=== PATIENT | male | born 1970 | race Caucasian/White ===

== ENCOUNTER → 2019-11-03 08:46 | Outpatient (BNVA) | payer OTHER, SELFPAY | PROVIDERS: Visit Provider Registered Nurse | DX: Z02.1 Encounter for pre-employment examination (principal) | CPT/HCPCS: 80307 ==

== ENCOUNTER 2022-03-27 19:48 | Inpatient (IN) | payer OTHER, SELFPAY ==
[2022-03-27 19:50] VITALS: BP 127/80; PULSE 83; RESP 18; TEMP 36.9; O2SAT 97; BMI 27.7
--- NOTE | 2022-03-27 19:55 | XRR_ITS ---
PROCEDURE INFORMATION: Exam: XR Right Femur Exam date and time: 03/27/2022 8:13 PM Age: 51 years old Clinical indication: Injury or trauma; Fall; Other: Possible fracture TECHNIQUE: Imaging protocol: Radiologic exam of the Right femur. Views: 2 views. COMPARISON: No relevant prior studies available. FINDINGS: Bones/joints: Mildly displaced right mid femoral neck fracture. Femoroacetabular alignment is normal. The distal femur and knee are unremarkable. The visible portion of the pelvis is intact. Soft tissues: Visible soft tissues are unremarkable. XR/XR femur RT min 2V* [id number] IMPRESSION: Right femoral neck fracture.
--- NOTE | 2022-03-27 19:55 | XRR_ITS ---
PROCEDURE INFORMATION: Exam: XR Right Hip Exam date and time: 03/27/2022 8:13 PM Age: 51 years old Clinical indication: Pelvic pain; Additional info: Trauma TECHNIQUE: Imaging protocol: Radiologic exam of the Right hip. Views: 1 view hip with pelvis when performed. COMPARISON: No relevant prior studies available. FINDINGS: Bones/joints: Mildly displaced mid right femoral neck fracture. The visible portion of the pelvis and sacrum is intact. Soft tissues: Visible soft tissues are unremarkable. XR/XR hip RT 2-3V wo/w pel* [id number] IMPRESSION: Right femoral neck fracture.
--- NOTE | 2022-03-27 19:57 | W.ED.GENADLT ---
HPI - General Adult General: Chief complaint: Fall Stated complaint: right leg pain Time Seen by Provider: 03/27/22 19:52 History of Present Illness: 51-year-old male presenting today with right hip pain. Patient notes he was riding his horse. When horse suddenly bucked him off. Striking his right hip on the ground. He denies back pain, abdominal pain, chest pain, neck pain, head pain. Did not strike his head. Is not on blood thinners. He denies additional injuries. Pain in his leg is worse with movement somewhat relieved with rest. Review of Systems General: Reports: 10 or more systems reviewed and unremarkable except in HPI and below Physical Exam Const: COMMON NORMALS: no acute distress, patient oriented x3 and alert GENERAL APPEARANCE: cooperative ORIENTATION/CONSCIOUSNESS: Yes awake, Yes oriented to person, Yes oriented to place and Yes oriented to time HENMT: COMMON NORMALS: normocephalic, atraumatic, external ears normal, Normal external nose present and moist oral mucous membranes HEAD & SCALP: normal to inspection, normocephalic and atraumatic NOSE: Normal external nose present GENERAL EAR: hearing grossly impaired EXTERNAL EAR: Yes external ears normal Eye: COMMON NORMALS: Equal, round and reactive pupils present, EOMs intact bilaterally, conjunctivae normal and no scleral icterus GENERAL EYE: appearance normal, both eyes and all related structures EYELID: eyelids normal CONJUNCTIVA: Yes conjunctivae normal SCLERA: sclerae normal PUPIL: Yes Equal, round and reactive pupils present Neck/C-Spine: COMMON NORMALS: full ROM, supple and no JVD GENERAL: Yes normal visual inspection Lymph: LYMPHATIC: no lymphadenopathy noted and no lymphedema noted Chest: COMMONS NORMALS: normal inspection of the chest Resp: COMMON NORMALS: normal respiratory effort, No retractions and No use of accessory muscles Cardio: COMMON NORMALS: no JVD, regular rate and regular rhythm RATE: regular rate RHYTHM: regular rhythm GI: COMMON NORMALS: Normal to inspection, nondistended, normoactive bowel sounds present : COMMON NORMALS: Yes no CVA tenderness BLADDER/KIDNEY EXAM: Yes no CVA tenderness Back/Pelvis: COMMON NORMALS: no CVA tenderness and thoracic and lumbar spine normal to inspection Extremity: COMMON NORMALS: normal to inspection and capillary refill normal; negative for full ROM (tenderness to palpation right hip joint, pain with movement) GENERAL: Yes normal exam except as noted Neuro: COMMON NORMALS: patient oriented x3, CN's II-XII intact bilaterally, moves all extremities, no focal motor deficits, no sensory deficits noted and gait normal SENSORIUM/ORIENTATION: Yes alert, Yes oriented to person, Yes oriented to place and Yes oriented to time Psych: COMMON NORMALS: mental status grossly normal, Normal thought process present, cooperative and normal affect THOUGHT PROCESS: Normal thought process present Skin: COMMON NORMALS: no rashes or lesions noted and no wounds GENERAL SKIN EXAM: no rashes or lesions noted Course Vital Signs: Vital signs: Vital Signs Temperature 98.5 F 03/27/22 19:59 Pulse Rate 83 03/27/22 19:59 Respiratory Rate 18 03/27/22 19:59 Blood Pressure 133/84 03/27/22 19:59 Pulse Oximetry 97 03/27/22 19:59 Oxygen Delivery Me thod 03/27/22 19:59 MDM - General Adult Medical Decision Making 51-year-old male presenting today with right hip pain. Patient presenting today with right hip pain. X-rays ordered. X-ray with evidence of right hip fracture. Spoke to orthopedics who will fixate tomorrow. Patient admitted in stable condition. Discharge Plan Discharge Patient Disposition: Admitted As Inpatient Clinical Impression: Closed hip fracture Condition: Stable Coding Level of Care Code ED Director Financial Analysis for Josefa Song Exam Comprehensive
[2022-03-27 19:59] VITALS: BP 133/84; PULSE 83; RESP 18; TEMP 36.9; O2SAT 97
--- NOTE | 2022-03-27 20:31 | XRR_ITS ---
PROCEDURE INFORMATION: Exam: XR Right Knee Exam date and time: 03/27/2022 8:39 PM Age: 51 years old Clinical indication: Pain; Knee; Right; Additional info: Trauma TECHNIQUE: Imaging protocol: Radiologic exam of the Right knee. Views: 3 views. COMPARISON: CR XR femur RT min 2V* [id number] 03/27/2022 8:13 PM FINDINGS: Bones/joints: Normal. Soft tissues: Normal. XR/XR knee RT 3V* [id number] IMPRESSION: No acute findings.
[2022-03-27] MEDS: ketorolac 30 mg/mL INJ 15 MG IVP (20:34)
--- NOTE | 2022-03-27 20:36 | PC.NURSE ---
Toradol IM not given secondary to pt having IV. Dr. Wei changed order to IV, which was administered .
[2022-03-27 21:26] VITALS: RESP 18; O2SAT 100
[2022-03-27] MEDS: HYDROmorphone 1 mg/mL INJ 1 mL IVP (21:26)
--- NOTE | 2022-03-27 22:09 | PM.PN ---
Subjective Subjective: Orthopedic note: Full orthopedic consult note to follow in the morning once patient has been seen and evaluated by myself. Information obtained by chart review and discussion with ED physician. Orthopedics was consulted. Was contacted by emergency department after patient sustained a fall after being bucked off a horse directly onto his right hip. Patient is a 51-year-old male and complains of right hip pain. X-ray showed patient had a displaced right femoral neck fracture. Orthopedics was consulted. Patient's imaging was reviewed. Patient has a steep vertical shear fracture with significant displacement of the right femoral neck. Given patient's activity level as well as significant displacement, vertical shear fracture pattern as well as patient's age and feel patient would most likely benefit from a right total hip arthroplasty through an anterior approach. At this point would recommend patient be admitted by the hospitalist service for medical management as well as preoperative optimization for surgery tomorrow. Patient should be n.p.o. at midnight. Nonweightbearing to the right lower extremity. Hold a.m. anticoagulation. Plan for surgery tomorrow for right total hip arthroplasty. We will have detailed discussion with patient about his treatment options and as well as recommendations in the morning. Vitals/I&O/Wt Last Vital Signs Temp 98.5 F 03/27/22 19:59 Pulse 83 03/27/22 19:59 Resp 18 03/27/22 21:26 BP 133/84 03/27/22 19:59 Pulse Ox 100 03/27/22 21:26 O2 Del Method 03/27/22 19:59 Weight last 48 hrs Weight 210 lb Physical Exam Narrative: Patient was not seen and examined. Data Xray Ortho: My impression: X-rays of the pelvis AP lateral of the hip as well as femur and knee films reviewed and show patient has a high Powells angle vertical shear fracture of the transcervical femoral neck on the right hip. Fracture significantly displaced. No other acute fracture dislocation noted. A&P Assessment and plan (1) Displaced fracture of right femoral neck: Status: Acute Plan Orthopedic recommendations -N.p.o. at midnight, patient may have diet this evening -Nonweightbearing right lower extremity -Pain control per admitting team -Hold a.m. anticoagulation -Internal medicine team as primary for medical management and preoperative optimization -Plan for OR tomorrow for right total hip arthroplasty Attestations Medical Necessity Statement*: Patient will require hospitalization and surgery for right femoral neck fracture. Coding Level of Care Code Acute Education Trainer for [facility] Fwd Diagnoses Displaced fracture of right femoral neck S72.001A
[2022-03-27 22:43] VITALS: BP 126/85; PULSE 81; RESP 18; O2SAT 97
--- NOTE | 2022-03-27 23:18 | XRR_ITS ---
PROCEDURE INFORMATION: Exam: XR Chest Exam date and time: 03/28/2022 1:31 AM Age: 51 years old Clinical indication: Patient HX: Pre op for hip fracture. ; Additional info: Fall TECHNIQUE: Imaging protocol: Radiologic exam of the chest. Views: 1 view. COMPARISON: No relevant prior studies available. FINDINGS: Lungs: There is no consolidation. Pleural spaces: There is no pleural effusion or pneumothorax. Heart/Mediastinum: Cardiomediastinal contours are unremarkable. Bones/joints: Bones are unremarkable. XR/XR chest 1V portable [id number] IMPRESSION: No acute findings.
--- NOTE | 2022-03-27 23:22 | P.HP_ITS ---
Providers/Chief Complaint Admitting Physician: Jeyson Hernandez MD Chief Complaint: right leg pain History of Present Illness Norman Howard is a 51 year old male with no significant past medical history, who presents [facility] as he fell off his horse and landed on his right hip. He tells me that he has not seen a doctor in over 15 years, no significant health issues, no significant surgeries, does smoke, he tells me this afternoon, he was on his horse, went he was thrown off his horse and landed on his right hip. No head trauma, no loss of consciousness, was found to have a right hip fracture, orthopedic service has been consulted, hospitalist team was called for admission. Review of Systems Const: Denies: fever(s) Card: Denies: chest pain Resp: Denies: dyspnea GI: Denies: abdominal pain Musc: Reports: extremity pain Neuro: Denies: headache(s) Medications/Allergies Home Medications Medication Instructions Recorded Confirmed Last Taken Type No Known Home Medications 03/27/22 03/27/22 Unknown History Allergies Allergy/AdvReac Type Severity Reaction Status Date / Time No Known Allergies Allergy Verified 03/27/22 20:57 PFSH Acute PFSH: Medical History (Updated 03/27/22 @ 22:13 by Parker Maharaj DO) Displaced fracture of right femoral neck Surgical History (Updated 03/27/22 @ 23:24 by Jeyson Hernandez MD) No pertinent past surgical history Social History (Updated 03/27/22 @ 23:24 by Jeyson Hernandez MD) Smoking and tobacco status: current every day smoker Alcohol intake: current Alcohol intake frequency: holidays/special occasions only Substance/Drug Use: never Vitals/I&O/Wt Last Vital Signs Temp 98.5 F 03/27/22 19:59 Pulse 81 03/27/22 22:43 Resp 18 03/27/22 22:43 BP 126/85 03/27/22 22:43 Pulse Ox 97 03/27/22 22:43 O2 Del Method 03/27/22 19:59 Weight last 48 hrs Weight 95.254 kg Physical Exam Const: COMMON NORMALS: no acute distress and patient oriented x3 HENMT: COMMON NORMALS: normocephalic HEAD & SCALP: normocephalic Eye: COMMON NORMALS: Equal, round and reactive pupils present Neck/C-Spine: COMMON NORMALS: no JVD Resp: COMMON NORMALS: normal respiratory effort, No retractions, No use of accessory muscles and clear to auscultation bilaterally AUSCULTATION: clear to auscultation bilaterally Cardio: COMMON NORMALS: no JVD, regular rate, regular rhythm, S1 normal heart sound present and S2 normal heart sound present RATE: regular rate RHYTHM: regular rhythm HEART SOUNDS: S1 normal heart sound present and S2 normal heart sound present GI: COMMON NORMALS: Normal to inspection, nondistended, normoactive bowel sounds present, Soft to palpation, non-tender, No hepatosplenomegaly present, no masses and no bruits PALPATION: Yes Soft to palpation and Yes No hepatosplenomegaly present Extremity: COMMON NORMALS: capillary refill normal, no clubbing, cyanosis or edema, no calf tenderness and no pedal edema Neuro: COMMON NORMALS: patient oriented x3 Psych: COMMON NORMALS: mental status grossly normal A&P Assessment and plan (1) Displaced fracture of right femoral neck: Status: Acute Plan Right hip fracture -N.p.o. midnight -Surgical intervention tomorrow morning by the surgery service -Dilaudid for pain control -Zofran for nausea -Full code -SCDs for DVT prophylaxis, Lovenox after surgery -PT OT -Chest x-ray, EKG, blood work Attestations Medical Necessity Statement*: Patient requires hospitalization, outpatient observation, for right hip fracture Coding Level of Care Code Acute Doctor Of Nurse Anesthesia Practice for g Fwd Diagnoses Displaced fracture of right femoral neck S72.001A
[2022-03-27 23:43] VITALS: O2SAT 97
[2022-03-27] MEDS: dextrose 5%-sod chloride 0.9% 1,000 ML 75 ML IV (23:47)
--- NOTE | 2022-03-27 23:51 | ECG_ITS ---
[facility] Test Date: 2022-03-27 Pat Name: Norman Howard Department: Room: 273 Gender: Male Recruiter Manager: : 1970 Requested By: Jeyson Hernandez Order Number: [id number] Rubén MD: Anabell Torres M.D. Measurements Intervals Gamaliel Rate: 66 P: 68 MA: 189 QRS: -27 QRSD: 97 T: 14 QT: 400 QTc: 420 Interpretive Statements SINUS RHYTHM POSSIBLE LEFT ATRIAL ENLARGEMENT [-0.1mV P-WAVE IN V1/V2] BORDERLINE LEFT AXIS DEVIATION [QRS AXIS < -20] No previous ECG available for comparison Electronically Signed On 03-29-2022 6:24:48 CDT by Anabell Torres M.D. [id number]
[2022-03-27] MEDS: acetaminophen 325 mg Tablet 650 MG PO (23:54)
[2022-03-28] VITALS (16 sets, daily range): BP systolic 82–149; BP diastolic 48–84; PULSE 56–77; RESP 13–18; TEMP 36.2–37.7; O2SAT 94–99; BMI 28.2
--- NOTE | 2022-03-28 | XR_ITS ---
WS: [id number] Right hip, C-arm fluoroscopy, 03/28/2022 Clinical Data: canulated screws Comparison: Right hip, 03/27/2022 Findings: Dr. Garcia inserted 3 hip nails to reduce the right femoral neck fracture. XR/XR hip RT 2-3V wo/w pel* [id number] Impression: Internal fixation of right femoral neck fracture.
--- NOTE | 2022-03-28 | SCC_ITS ---
Procedure done: Closed reduction and percutaneous pinning right hip 120.7 seconds of fluoroscopic guidance, for a cumulative dose of 29.54 mGy, was provided to Dr. Garcia by the radiology department. C-arm images of the right hip were saved for the patient's permanent record. [facility]ITALJon
[2022-03-28 00:56] LABS: Chol HDL Ratio 5.94 mg/dL (1.0-5.00); Cholesterol 214 mg/dL (0-200); HDL Cholesterol 36 mg/dL (60-100); LDL Cholesterol Calculated 129 mg/dL (50-129); LDL HDL Ratio 3.58 RATIO (0.00-3.22); Magnesium 2.1 mg/dL (1.7-2.3); NT Pro B Type Natriuretic Pept 145 pg/mL (0-125); Phosphorus 2.9 mg/dL (2.5-4.5); Triglycerides 244 mg/dL (0-150)
[2022-03-28 01:38] LABS: Estmated Average Glucose 117; Hemoglobin A1C 5.7 % (4.0-6.0)
[2022-03-28] MEDS: HYDROmorphone 1 mg/mL INJ 1 mL 0.5 MG IVP ×2 (01:54→08:22)
[2022-03-28 03:25] LABS: SARS Covid-2 Antigen Negative (Negative)
--- NOTE | 2022-03-28 07:53 | PC.OT ---
OT EVALUATION ORDERS RECEIVED. PATIENT IS AWAITING SURGERY; WILL HOLD AND ANTICIPATE ORDERS AFTER SURGICAL INTERVENTION.
[2022-03-28 08:45] LABS: Basophils # 0.1 10^3/uL (0.0-0.1); Basophils % 0.7 %; Eosinophils # 0.4 10^3/uL (0.0-0.8); Eosinophils % 3.6 %; Hematocrit 46.7 % (42.0-52.0); Hemoglobin 15.2 g/dL (11.7-16.6); Lymphocytes # 1.5 10^3/uL (0.8-4.8); Lymphocytes % 13.1 %; Mean Corpuscular HGB Conc 32.5 g/dL (30.0-36.0); Mean Corpuscular Volume 95.3 fl (80-94); Mean Platelet Volume 10.1 fL (7.4-10.4); Monocytes % 8.4 %; Neutrophils # 8.31 10^3/uL (1.8-7.7); Neutrophils % 73.8 %; Nucleated Red Blood Cells % 0 %; Platelet Count 250 10^3/cmm (130-400); Red Cell Distribution Width 12.3 % (12.1-15.1); White Blood Count 11.3 10^3/uL (4.0-10.0)
[2022-03-28 09:08] LABS: Blood Urea Nitrogen 14 mg/dL (6-20); Calcium 8.9 mg/dL (8.5-10.5); Carbon Dioxide 26 mmol/L (22-29); Chloride 106 mmol/L (98-107); Glomerular Filtration Rate 118.4 mL/min (90-130); Glucose 84 mg/dL (65-115); Osmolality Calculated 294 mOsm/kg (285-295); Sodium 142 mmol/L (136-145)
[2022-03-28 09:31] LABS: Anion Gap 14.2 (5-19); Potassium 4.2 mmol/L (3.5-5.1)
--- NOTE | 2022-03-28 09:41 | PM.CONSULT ---
Providers/Reason For Consult Consulting Physician/Specialty*: Connor Garcia MD; orthopedic surgery Reason for Consult*: Right femoral neck fracture Attending Physician: Stefanie Hoffman MD History of Present Illness History of Present Illness Norman Howard is a 51 year old male who injured his right hip yesterday. He was riding his horse that apparently blucked at a horse fly, with Mr. Clark falling to the ground on his right hip. He was seen in our emergency room where radiographs revealed a right femoral neck fracture. He is admitted to medicine and orthopedics is consulted for management of the fracture. He denies any previous history of a right hip pain. He moved here from [place] 3 years ago and works with our hospital maintenance team. He states he is active kayaking, hiking, and rides horses. He reports this next week for his anniversary his and him had scheduled a long hike which she now realizes he will not 10. Medications/Allergies Home Medications Medication Instructions Recorded Confirmed Last Taken Type No Known Home Medications 03/27/22 03/27/22 Unknown History Allergies Allergy/AdvReac Type Severity Reaction Status Date / Time No Known Allergies Allergy Verified 03/27/22 20:57 Current Medications Generic Name Dose Route Start Last Admin Trade Name Freq PRN Reason Stop Dose Admin Acetaminophen 650 mg 03/27/22 23:20 03/27/22 23:54 Acetaminophen 325 Mg Tablet PO 650 mg Q6H PRN Administration Mild/Mod Pain Or Temp >/= 101 Hydromorphone HCl 0.5 mg 03/27/22 23:21 03/28/22 08:22 Hydromorphone 1 Mg/Ml Inj 1 Ml IVP 0.5 mg Q4H PRN Administration PAIN Dextrose/Sodium Chloride 1,000 mls @ 75 mls/hr 03/27/22 23:30 03/27/22 23:47 Dextrose 5%-Sod Chloride 0.9% IV 75 mls/hr .[id number] JUNIOR Administration PFSH Acute PFSH: Medical History (Updated 03/27/22 @ 22:13 by Parker Maharaj DO) Displaced fracture of right femoral neck Surgical History (Updated 03/27/22 @ 23:24 by Jeyson Hernandez MD) No pertinent past surgical history Social History (Updated 03/27/22 @ 23:24 by Jeyson Hernandez MD) Smoking and tobacco status: current every day smoker Alcohol intake: current Alcohol intake frequency: holidays/special occasions only Substance/Drug Use: never Vitals/I&O/Wt Last Vital Signs Temp 97.6 F 03/28/22 08:00 Pulse 68 03/28/22 08:00 Resp 17 03/28/22 08:22 BP 146/84 03/28/22 08:00 Pulse Ox 99 03/28/22 08:00 O2 Del Method 03/28/22 08:00 Weight last 48 hrs Weight 214 lb Weight 210 lb Physical Exam Narrative: Right hip Examining the right lower extremity the patient hip is in normal alignment. I can see no external rotation or shortening. He has pain with motion of the right hip. Palpable right dorsalis pedis pulse. Flexes and extends right toes and ankle without any motor deficits. Sensation is intact to light touch. Data : 03/28/22 08:15 03/28/22 08:15 Xray Ortho: Radiologist's impression: 2 views of the right are personally interpreted from yesterday evening 03/27/2022. The patient has a fracture of the right femoral neck. There is some displacement noted on the attempted lateral radiograph but AP alignment looks reasonable. This is in agreement with the interpretation of the radiologist. A&P Assessment and plan (1) Displaced fracture of right femoral neck: Norman has a fracture of his right femoral neck. There is some displacement much worse on the lateral projection. I had a long discussion of options with him. I told him there are 2 options with this. I told him with displaced femoral neck fracture incision a higher risk of nonunion malunion and avascular necrosis with surgical stabilization. However a pinning offers him the best chance that retaining his normal hip and if successful the most functional long-term outcome. I told him that for displaced fractures we often consider hip replacement, particularly in those who are older. Hip replacement is reliable and would offer him the opportunity for immediate weightbearing. However this would not of course be his normal hip. He likely would continue to experience some pain. He would be exposed to risk of total hip arthroplasty including dislocation and failure of components. For very active male there is the possibility of future revision surgery. After I discussed options with Norman we both agreed that he maintains a very active lifestyle, probably much younger than his chronological age. He is strong enough to use crutches and remain protected weightbearing for 6weeks. He understands the potential risk of nonunion and malunion avascular necrosis with pinning. He agrees to proceed with percutaneous pinning of the hip. I told him that if a satisfactory duction cannot be obtained in the OR we would reserve the right to proceed with a total hip arthroplasty. We will proceed with surgery today. There is no obvious medical risks requiring optimization prior to surgery. Status: Acute Coding Level of Care Code Acute Special Education Educational Assistant for Josefa Song Diagnoses Displaced fracture of right femoral neck S72.001A
--- NOTE | 2022-03-28 10:04 | PC.CHAP ---
Pastoral Care Encounter/Spiritual Assessment Type of Contact [] Declined pet sitting visit [] Patient/Family/Request visit [] Outpatient visit [] Follow-up visit [] Physician referral [] Code/Alert [x] Routine visit [] Staff referral [] Actively dying [] Patient sleeping [] Family support [] [] Out of room [] Palliative care [] [x] Receiving care in room [] Pre-surgical visit [] Trauma [] Long length of stay [] ICU visit [] Other: Relational/Emotional Strength [x] Patient feels connected with others/family/visitors/staff [] Distress [] Loneliness/isolation [] Abandonment Spirituality of Patient [x] Person of Lilian [] Attends Protestant of their Lilian [x] Believes in Prayer [] Reads Bible or Episcopal materials [] There are Spiritual issues to be addressed Emergency Vehicle Operator Interventions [x] Prayer [x] Active listening [x] Non-anxious presence [x] Spiritual/emotional support [] Crisis/trauma care [x] Spiritual counseling [] Bereavement support [] Provided bereavement packet [] Provided Bible/devotional materials [] Provided toy/stuffed animal, coloring book to patient or family member [] Provided Communion [] Anointing/Higden [] Salvation [x] Completed spiritual assessment [] Other: Impact on Illness or Injury [] Angry [] Fearful [] Anxious [] Often cries [] Exhaustion [] Unable to work [] Unable to attend zoroastrian [] Unable to walk/stand [] Unable to read [] Unable to drive [] Unable to eat/drink [] Unable to sleep [] Unable to be with family [] Patient intubated [] Other: Summary has good attitude as he is going into surgery Time spent with patient 10 mins
--- NOTE | 2022-03-28 12:17 | PM.OP ---
Operative Report Date of procedure: March 28, 2022 Pre-op diagnosis: Preop Diagnosis Displaced right femoral neck fracture Post-op diagnosis: same Post-op diagnosis: Same Post-op findings: Same Procedure done: Closed reduction and percutaneous pinning right hip Implants: [place] 8.0mm ASNIS screws x 3 (95 mm, 95 mm, 100 mm) Pathology: none sent Surgeon: Connor Garcia Anesthesia: MAC Estimated blood loss (mL): 5 Findings: The patient had a a right femoral neck fracture. With slight traction and internal reduction anatomic alignment could be obtained. Condition: stable Brief History: The patient is a healthy active 51-year-old male who was bucked from a horse with a resulting right femoral neck fracture. Due to his young physiologic age and excellent health he was considered a candidate for pinning if anatomic reduction could be obtained during surgery. Procedure: The patient was positioned on the fracture table with his right leg in traction. They were given 2 g of Ancef. A timeout was performed. Initial longitudinal traction was applied on the leg with slight internal rotation. Slight posterior force was applied across the proximal femur and anatomic reduction was obtained. A decision was made to proceed with pinning. A small lateral stab wound was made just below the level of the greater trochanter with a scalpel blade. Under visit so fluoroscopy initial guide pin was driven from a central position just above the level of lesser trochanter into inferior neck and inferior head passing just superior to the inferior femoral neck.. Over this was passed an 8.0 mm [place] Asnis screw measuring 95 mm in length. Compression was obtained to reduce the inferior femoral neck cortex.. A second pin was placed in the superior anterior position measuring 95 mm in length and a second screw placed. A third pin was placed in a posterior superior position and a third screw placed measuring 100 mm in length. All screws had excellent purchase.. Intraoperative fluoroscopy was used to verify hardware position. Hip was brought through a gentle range of motion and all screws were felt to be within the femoral head the wound was irrigated with saline. Deep tissues were closed with 3-0 Vicryl. A sterile dressing was applied. The patient was taken to recovery unit in stable condition.
--- NOTE | 2022-03-28 12:40 | SUR.PHASEI ---
1215 SCDs on pump and working. 1235 Sensation returned to L3-L4. Pt stated that he can feel pressure when touched with a tongue depressure. Pt able to wiggle toes on both feet.
--- NOTE | 2022-03-28 12:50 | PM.PN ---
Subjective Subjective: Patient was going for surgery when I evaluated him No active pain Hemodynamic stable Vitals/I&O/Wt Last Vital Signs Temp 97.2 F L 03/28/22 12:31 Pulse 72 03/28/22 12:31 Resp 18 03/28/22 12:31 BP 112/70 03/28/22 12:31 Pulse Ox 98 03/28/22 12:31 O2 Del Method 03/28/22 12:31 O2 Flow Rate 6 03/28/22 12:16 03/27/22 03/28/22 03/28/22 22:59 06:59 14:59 Intake Total 700 / 700 Output Total 2 / Balance 698 / 698 Weight last 48 hrs Weight 97.069 kg Weight 95.254 kg Physical Exam Narrative: Young male Healthy looking Euvolemic Abdomen soft No active pain Hemodynamically stable Nonfocal neuro exam Saturating well on room air Pleasant cooperative Data : 03/28/22 08:15 03/28/22 08:15 A&P Assessment and plan (1) Displaced fracture of right femoral neck: Status: Acute (2) Closed hip fracture: Status: Acute Plan Closed hip fracture Pain well managed for now Add bowel regimen Will start DVT prophylaxis after surgery Hemodynamically stable Doing well on room air PT evaluation of the surgery Most likely he will be able to go home on home health services Attestations Medical Necessity Statement*: Continue medical management Time Spent in Patient Care: 40 Coding Level of Care Code Acute [employer] Diagnoses Displaced fracture of right femoral neck S72.001A Closed hip fracture S72.009A
--- NOTE | 2022-03-28 13:37 | ANE.PACU2 ---
Inpatient post-anesthesia follow up: Airway intact: Yes Vital signs: Temperature 97.2 F Pulse Rate 56 Respiratory Rate 17 Blood Pressure 112/70 Pulse Oximetry 98 Oxygen Delivery Me thod Room Air Oxygen Flow Rate 6 Fraction of Inspir ed Oxygen Hydration adequate: Yes Nausea and vomiting: No Pain level: 2 Mental status: Baseline
[2022-03-28] MEDS: oxyCODONE-APAP 5-325 mg Tablet 1 TAB PO (15:06)
--- NOTE | 2022-03-28 16:21 | PC.OT ---
DISCHARGE OT ORDER; NO NEW ORDERS SINCE SURGERY AND PER P.T. PATIENT INDEPENDENT AND NO ADL ASSISTANCE REQUIRED AT THIS TIME
--- NOTE | 2022-03-28 16:53 | ANES.PREANE2 ---
Pre-Anesthetic Assessment Height/Weight: Height 1.85 m Weight 97.069 kg Temp Pulse Resp BP Pulse Ox O2 Del Method O2 Flow Rate 97.2 F L 71 18 112/70 98 6 03/28/22 16:03 03/28/22 16:03 03/28/22 16:03 03/28/22 16:03 03/28/22 16:03 03/28/22 13:11 03/28/22 12:16 Preop Diagnosis: Displaced right femoral neck fracture Operation Date: 03/28/22 10:30 Proposed Procedures p Hip Screw(Right) - Connor Garcia MD s Total Hip Arthroplasty(Right) - Connor Garcia MD Familial anesthetic complications: none Was Beta Kevyn taken within 24 hours: N/A Was Clonidine taken within 24 hours: N/A Last intake: Intake Last Liquid Date 03/27/22 Last Liquid Time 17:00 Last Solid Date 03/27/22 Last Solid Time 17:00 Social Tobacco and No alcohol Exam alert, oriented x 3, clear to auscultation bilaterally and regular rate & rhythm Airway Submandibular: within normal limits Cervical ROM: within normal limits Mallampati: Class II Dentition: chipped Pulmonary Chronic Obstructive Pulmonary Disease Anesthetic Plan ASA status: 2 Anesthesia: Regional (specify below) (SAB) Medications/Allergies Home Medications Medication Instructions Recorded Confirmed Last Taken Type aspirin 325 mg tablet,delayed 325 mg PO DAILY 30 days #30 tabs 03/28/22 Unknown Rx release oxycodone-acetaminophen 5 mg-325 1 tab PO Q4H PRN Moderate Pain 7 03/28/22 Unknown Rx mg tablet days #30 tabs Allergies Allergy/AdvReac Type Severity Reaction Status Date / Time No Known Allergies Allergy Verified 03/27/22 20:57 Current Medications Generic Name Dose Route Start Last Admin Trade Name Freq PRN Reason Stop Dose Admin Oxycodone/Acetaminophen 1 tab 03/28/22 13:25 03/28/22 15:06 Oxycodone-Apap 5-325 Mg Tablet PO 1 tab Q4H PRN Administration MODERATE PAIN PFSH Anesthesia Medical History (Updated 03/27/22 @ 22:13 by Parker Maharaj DO) Displaced fracture of right femoral neck Surgical History (Updated 03/28/22 @ 13:30 by Connor Garcia MD) No pertinent past surgical history Social History (Updated 03/27/22 @ 23:24 by Jeyson Hernandez MD) Smoking and tobacco status: current every day smoker Alcohol intake: current Alcohol intake frequency: holidays/special occasions only 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 [employer] Anesthesia : 03/28/22 08:15 03/28/22 08:15 Short CBC 03/28/22 Range/Units 08:15 WBC 11.3 H (4.0-10.0) 10^3/uL Hgb 15.2 (11.7-16.6) g/dL Hct 46.7 (42.0-52.0) % MCV 95.3 H (80-94) fl Plt Count 250 (130-400) 10^3/cmm Neut % (Auto) 73.8 % Neut # (Auto) 8.31 H (1.8-7.7) 10^3/uL BMP 03/28/22 08:15 Sodium 142 Potassium 4.2 Chloride 106 Carbon Dioxide 26 BUN 14 Creatinine 0.7 Glucose 84 Calcium 8.9 Cardiac Enzymes 03/27/22 Range/Units 00:00 NT-Pro-B Natriuret Pep 145 H (0-125) pg/mL Blood Bank 03/28/22 08:15 Blood Type O Negative Rho(D) Type Negative Antibody Screen Negative COVID Results 03/28/22 03:00 SARS-CoV-2 Ag (Rapid) Negative Coags 03/27/22 00:00 PT 12.50 INR 0.90 Cardiac Studies: No Data to Display
--- NOTE | 2022-03-28 16:58 | PC.SOCIAL ---
CM spoke to Nurse Amalia and she denies patient having any needs from CM.
[2022-03-29] VITALS: TEMP -17.7; TEMP 0
--- NOTE | 2022-03-29 16:45 | P.DS_ITS ---
Discharge Providers Date of Admission: 03/27/22 20:54 Date of Discharge: March 28, 2022 Attending Provider at Admission: Jeyson Hernandez MD Attending Provider at Discharge: Stefanie Hoffman MD Consults: Connor Garcia MD Diagnoses at Discharge Discharge Diagnosis (1) Displaced fracture of right femoral neck: Status: Acute (2) Closed hip fracture: Status: Acute Reason for Visit Reason for Visit: right leg pain Brief History: The patient is a 51-year-old male who was thrown from a horse with a resulting right femoral neck fracture. Hospital Course Hospital Course The patient was admitted for treatment of a displaced right femoral neck fracture. He was taken to the operating room where a closed reduction and pinning was accomplished with an anatomic result. He did well with therapy that day and was discharged home Physical Exam Narrative: On the day of discharge the hip incision was clean. The incision was free of drainage. They had no particular swelling about the thigh or distal. No distal neurovascular deficits were noted. Discharge Data Studies Completed and Pending Completed Studies During Hospitalization Category Date Time Status XR chest 1V portable [id number] Routine Exams 03/27/22 23:18 Completed XR femur RT min 2V* [id number] Stat Exams 03/27/22 19:55 Completed XR hip RT 2-3V wo/w pel* [id number] Routine Exams 03/28/22 Completed XR hip RT 2-3V wo/w pel* [id number] Stat Exams 03/27/22 19:55 Completed XR knee RT 3V* [id number] Stat Exams 03/27/22 20:31 Completed Radiology Impressions Femur X-Ray 03/27/22 19:55 IMPRESSION: Right femoral neck fracture. Knee X-Ray 03/27/22 20:31 IMPRESSION: No acute findings. Chest X-Ray 03/27/22 23:18 IMPRESSION: No acute findings. Hip/Pelvis X-Ray 03/28/22 00:00 Impression: Internal fixation of right femoral neck fracture. Laboratory Results WBC 11.3 10^3/uL (4.0-10.0) H 03/28/22 08:15 RBC 4.90 10^6/uL (4.1-5.3) 03/28/22 08:15 Hgb 15.2 g/dL (11.7-16.6) 03/28/22 08:15 Hct 46.7 % (42.0-52.0) 03/28/22 08:15 MCV 95.3 fl (80-94) H 03/28/22 08:15 MCH 31.0 pg (28.0-34.0) 03/28/22 08:15 MCHC 32.5 g/dL (30.0-36.0) 03/28/22 08:15 RDW 12.3 % (12.1-15.1) 03/28/22 08:15 Plt Count 250 10^3/cmm (130-400) 03/28/22 08:15 MPV 10.1 fL (7.4-10.4) 03/28/22 08:15 Neut % (Auto) 73.8 % 03/28/22 08:15 Lymph % (Auto) 13.1 % 03/28/22 08:15 Hawkins % (Auto) 8.4 % 03/28/22 08:15 Eos % (Auto) 3.6 % 03/28/22 08:15 Baso % (Auto) 0.7 % 03/28/22 08:15 Neut # (Auto) 8.31 10^3/uL (1.8-7.7) H 03/28/22 08:15 Lymph # (Auto) 1.5 10^3/uL (0.8-4.8) 03/28/22 08:15 Hawkins # (Auto) 1.0 10^3/uL (0.2-0.9) H 03/28/22 08:15 Eos # (Auto) 0.4 10^3/uL (0.0-0.8) 03/28/22 08:15 Baso # (Auto) 0.1 10^3/uL (0.0-0.1) 03/28/22 08:15 Nucleated RBC % (auto) 0 % 03/28/22 08:15 Nucleated RBCs # 0.0 /100WBC 03/28/22 08:15 PT 12.50 SECONDS (12.1-14.9) 03/27/22 00:00 INR 0.90 (0.8-1.2) 03/27/22 00:00 Sodium 142 mmol/L (136-145) 03/28/22 08:15 Potassium 4.2 mmol/L (3.5-5.1) 03/28/22 08:15 Chloride 106 mmol/L (98-107) 03/28/22 08:15 Carbon Dioxide 26 mmol/L (22-29) 03/28/22 08:15 Anion Gap 14.2 (5-19) 03/28/22 08:15 BUN 14 mg/dL (6-20) 03/28/22 08:15 Creatinine 0.7 mg/dL (0.7-1.2) 03/28/22 08:15 GFR Calculation 118.4 mL/min (90-130) 03/28/22 08:15 Glucose 84 mg/dL (65-115) 03/28/22 08:15 Estimat Average Glucose 117 03/27/22 00:00 Hemoglobin A1c 5.7 % (4.0-6.0) 03/27/22 00:00 Calculated Osmolality 294 mOsm/kg (285-295) 03/28/22 08:15 Calcium 8.9 mg/dL (8.5-10.5) 03/28/22 08:15 Phosphorus 2.9 mg/dL (2.5-4.5) 03/27/22 00:00 Magnesium 2.1 mg/dL (1.7-2.3) 03/27/22 00:00 NT-Pro-B Natriuret Pep 145 pg/mL (0-125) H 03/27/22 00:00 Triglycerides 244 mg/dL (0-150) H 03/27/22 00:00 Cholesterol 214 mg/dL (0-200) H 03/27/22 00:00 LDL Cholesterol, Calc 129 mg/dL (50-129) 03/27/22 00:00 HDL Cholesterol 36 mg/dL (60-100) L 03/27/22 00:00 LDL/HDL Ratio 3.58 RATIO (0.00-3.22) H 03/27/22 00:00 Cholesterol/HDL Ratio 5.94 mg/dL (1.0-5.00) H 03/27/22 00:00 TSH 3.20 uIU/mL (0.27-4.20) 03/27/22 00:00 SARS-CoV-2 Ag (Rapid) Negative (Negative) 03/28/22 03:00 Blood Type O Negative 03/28/22 08:15 Rho(D) Type Negative 03/28/22 08:15 Antibody Screen Negative 03/28/22 08:15 Vitals Last Vital Signs Temp 0 F L 03/29/22 00:00 Pulse 71 03/28/22 16:03 Resp 18 03/28/22 16:03 BP 112/70 03/28/22 16:03 Pulse Ox 98 03/28/22 16:03 O2 Del Method 03/28/22 13:11 O2 Flow Rate 6 03/28/22 12:16 Discharge Plan Discharge Patient Disposition: Home Condition: Stable Prescriptions: New aspirin 325 mg Tablet,Delayed Release (Dr/Ec) 325 mg PO DAILY 30 Days Qty: 30 0RF oxycodone-acetaminophen 5-325 mg Tablet 1 tab PO Q4H PRN (Reason: Moderate Pain) 7 Days Qty: 30 0RF Discharge Orders: Discharge Order (Routine); Ordered 03/28/22 Ordered By: Connor Garcia Referrals: Connor Garcia MD [Physician] - 04/24/22 10:15 am Discharge Diet: Advance as tolerated Discharge Activity: Limit activity as instructed Patient Instructions: Oxycodone/Acetaminophen (By mouth), Aspirin (By mouth), Joint Replacement Surgery (GEN), ORIF of Hip Fracture (GEN), Opioid Safety Activity Restrictions/Additional Instructions: Tylenol or anti-inflammatories for mild pain. Take Percocet for severe pain. May discontinue dressing once incision free of drainage Okay to shower once incision free of drainage Use crutches or walker and remain touchdown weightbearing. Discharge Attestations Time Spent in Discharge Care*: other Quality Metrics Clinical Quality Measures [ No reported AMI, CVA or VTE this stay] Coding Level of Care Code Acute [facility] note Diagnoses Displaced fracture of right femoral neck S72.001A Closed hip fracture S72.009A
== END 2022-03-28 17:00 | disposition home or self-care (01) | DRG 482 ==
LOC: ER 21:47 → MEDSURG 22:11
PROVIDERS: Orthopaedic Surgery; Student in an Organized Health Care Education/Training Program; Admitting Provider Family Medicine; Emergency Provider Emergency Medicine; Visit Provider Internal Medicine
PROC: 0QS634Z Reposition Right Upper Femur with Internal Fixation Device, Percutaneous Approach (ICD-10-PCS; CPT 27236; principal; 2022-03-28 10:20)
DX: S72.031A Displaced midcervical fracture of right femur, initial encounter for closed fracture (principal); V80.010A Animal-rider injured by fall from or being thrown from horse in noncollision accident, initial encounter; Y93.52 Activity, horseback riding; F17.200 Nicotine dependence, unspecified, uncomplicated; J44.9 Chronic obstructive pulmonary disease, unspecified
CPT/HCPCS: 36415; 71045; 73502; 73552; 73562; 76000; 80048; 80061; 83036; 83735; 83880; 84100; 84443; 85025; 85610; 86850; 86900; 87426; 93005; 94664; 96374; 96375; 97161; 99285; C1713; J1170; J1885; J2250; J2370; J2704

== ENCOUNTER → 2022-04-24 10:15 | Outpatient (BNVA) | payer OTHER, SELFPAY | PROVIDERS: Visit Provider Orthopaedic Surgery | DX: Z98.890 Other specified postprocedural states (principal); Z87.81 Personal history of (healed) traumatic fracture; S72.001A Fracture of unspecified part of neck of right femur, initial encounter for closed fracture; X58.XXXA Exposure to other specified factors, initial encounter | CPT/HCPCS: 73502 ==

== ENCOUNTER → 2022-05-22 10:36 | Outpatient (BNVA) | payer OTHER, SELFPAY | PROVIDERS: Visit Provider Orthopaedic Surgery | DX: S72.001D Fracture of unspecified part of neck of right femur, subsequent encounter for closed fracture with routine healing (principal); X58.XXXD Exposure to other specified factors, subsequent encounter; Z98.890 Other specified postprocedural states; Z87.81 Personal history of (healed) traumatic fracture | CPT/HCPCS: 73502 ==

== ENCOUNTER → 2022-06-25 10:14 | Outpatient (BNVA) | payer OTHER, SELFPAY | PROVIDERS: Visit Provider Orthopaedic Surgery | DX: S72.001D Fracture of unspecified part of neck of right femur, subsequent encounter for closed fracture with routine healing (principal); X58.XXXD Exposure to other specified factors, subsequent encounter; Z98.890 Other specified postprocedural states | CPT/HCPCS: 73502 ==

== ENCOUNTER → 2022-08-09 08:24 | Outpatient (BNVA) | payer OTHER, SELFPAY | PROVIDERS: Visit Provider Orthopaedic Surgery | DX: S72.001D Fracture of unspecified part of neck of right femur, subsequent encounter for closed fracture with routine healing; X58.XXXD Exposure to other specified factors, subsequent encounter | CPT/HCPCS: 73502 ==

== ENCOUNTER → 2022-09-18 08:19 | Outpatient (BNVA) | payer OTHER, SELFPAY | PROVIDERS: Visit Provider Orthopaedic Surgery | DX: S72.001A Fracture of unspecified part of neck of right femur, initial encounter for closed fracture (principal); S61.011A Laceration without foreign body of right thumb without damage to nail, initial encounter; X58.XXXA Exposure to other specified factors, initial encounter | CPT/HCPCS: 73502 ==